=== PATIENT | female | born 1965 | race Caucasian/White ===

== ENCOUNTER 2016-09-12 08:20 | Emergency (ER) | payer OTHER ==
[~2016-09-12] VITALS: Ht 152.4 cm; Wt 83.8 kg
[~2016-09-12 08:20] MED LIST: CLONAZEPAM1 MG PO; HYDROMORPHONE HC4 MG PO; IBUPROFEN600 MG PO; IMODIUM MS REL1 EACH PO; KLONOPIN1 MG PO; LEVETIRACETAM500 MG PO; LYRICA50 MG PO; LYRICA75 MG PO; MIRALAX255 GM PO; OMEPRAZOLE40 M1 PO; PANTOPRAZOLE SO40 MG PO; PRILOSEC40 MG PO; SENNA8.6 MG PO; VIMPAT100 MG PO; ZONEGRAN100 MG PO; ZYRTEC10 M3 PO
[2016-09-12 09:09] LABS: EOSINOPHIL (%) 0.3 % (0-5); HEMATOCRIT 42.4 % (36.0-46.0); IMMATURE GRANULOCYTE (%) 0.3 % (0.0-0.7); LYMPHOCYTE COUNT 1.3 K/uL (1.0-2.8); MCH 28.7 PG (29.0-34.0); MCV 84.5 FL (83-99); MEAN PLAT.VOLUME 9.3 uM^3 (9.5-12.4); MONOCYTE (%) 5.7 % (3-12); MONOCYTE COUNT 0.7 K/uL (0-0.8); NEUTROPHIL (%) 82.9 % (45-76); PLATELET COUNT 264 K/uL (156-360); RBC DIS.WIDTH-CV 12.5 % (11.8-14.6); RBC DIS.WIDTH-SD 38.6 % (39-53); RED BLOOD COUNT 5.02 M/uL (3.80-5.20); WHITE BLOOD COUNT 12.1 K/uL (4.1-10.2)
[2016-09-12 09:22] LABS: CHLORIDE 105 mEq/L (99-109); POTASSIUM 4.2 mEq/L (3.7-5.4); SODIUM 140 mEq/L (136-147)
[2016-09-12 09:24] LABS: GLUCOSE 130 mg/dL (70-99)
[2016-09-12 09:25] LABS: ANION GAP 11 MEQ/L (2-14)
[2016-09-12 09:26] LABS: TOTAL BILIRUBIN 0.8 mg/dL (0.0-1.0)
[2016-09-12 09:28] LABS: ALKALINE PHOSPHATASE 73 IU/L (3-129); GFR ESTIMATE (CALCULATED) > 59 mL/min/
[2016-09-12 09:29] LABS: UREA NITROGEN (BUN) 16 mg/dL (9-23)
[2016-09-12 09:30] LABS: TROP-I INTERPRETATION NEGATIVE; TROPONIN-I < 0.01 ng/mL (0.0-0.30)
[2016-09-12] MEDS ORDERED: DILAUDID4 MG PO (11:05)
[2016-09-12] MEDS ORDERED: FLAGYL500 MG PO (11:05)
[2016-09-12] MEDS ORDERED: CIPRO500 MG PO (11:05)
[2016-09-12 11:09] VITALS: BP 104/81
== END 2016-09-12 13:45 | disposition home or self-care (01) ==
LOC: EME 08:20
PROVIDERS: Emergency Medicine
DX: K52.9 Noninfective gastroenteritis and colitis, unspecified (principal); D72.829 Elevated white blood cell count, unspecified; K21.9 Gastro-esophageal reflux disease without esophagitis; R56.9 Unspecified convulsions
CPT/HCPCS: 74177; 80053; 81003; 84484; 85025; 86850; 86900; 86901; 93005; 99281; 99284

== ENCOUNTER → 2016-11-15 | Outpatient (CLI) | payer OTHER ==
[~2016-11-15] VITALS: Ht 152.4 cm; Wt 81.6 kg
[~2016-11-15] MED LIST changes: +CIPRO500 MG PO; +DILAUDID4 MG PO; +FLAGYL500 MG PO
== END | disposition home or self-care (01) ==
LOC: AMB 08:56
PROC: 0DBL8ZX Excision of Transverse Colon, Via Natural or Artificial Opening Endoscopic, Diagnostic (ICD-10-PCS; principal; 2016-11-15)
DX: K63.5 Polyp of colon (principal); K63.89 Other specified diseases of intestine; K64.8 Other hemorrhoids; R10.32 Left lower quadrant pain; K21.9 Gastro-esophageal reflux disease without esophagitis; K52.9 Noninfective gastroenteritis and colitis, unspecified; E66.9 Obesity, unspecified; Z68.35 Body mass index [BMI] 35.0-35.9, adult; Z80.3 Family history of malignant neoplasm of breast; Z83.3 Family history of diabetes mellitus; Z82.49 Family history of ischemic heart disease and other diseases of the circulatory system
CPT/HCPCS: 88305; J2250; J3010

== ENCOUNTER 2016-12-09 12:54 | Day surgery (SDC) | payer OTHER ==
[~2016-12-09] VITALS: Ht 152.4 cm; Wt 84.0 kg
[2016-12-09] MEDS ORDERED: SUDAFED PE PRE1 EAC2 PR (13:10)
== END 2016-12-09 14:30 | disposition home or self-care (01) ==
LOC: PAIN 12:54
PROC: 015B3ZZ Destruction of Lumbar Nerve, Percutaneous Approach (ICD-10-PCS; principal; 2016-12-09)
DX: M47.26 Other spondylosis with radiculopathy, lumbar region (principal); M12.88 Other specific arthropathies, not elsewhere classified, other specified site; M99.83 Other biomechanical lesions of lumbar region; G40.209 Localization-related (focal) (partial) symptomatic epilepsy and epileptic syndromes with complex partial seizures, not intractable, without status epilepticus; R74.8 Abnormal levels of other serum enzymes; K21.9 Gastro-esophageal reflux disease without esophagitis; E78.2 Mixed hyperlipidemia; E66.9 Obesity, unspecified; Z68.36 Body mass index [BMI] 36.0-36.9, adult; R20.2 Paresthesia of skin; Z88.8 Allergy status to other drugs, medicaments and biological substances
CPT/HCPCS: J1030; J2250; J3010; S0020

== ENCOUNTER 2016-12-16 12:57 | Day surgery (SDC) | payer OTHER ==
[~2016-12-16] VITALS: Ht 152.4 cm; Wt 84.0 kg
[~2016-12-16 12:57] MED LIST changes: +SUDAFED PE PRE1 EAC2 PR
== END 2016-12-16 14:50 | disposition home or self-care (01) ==
LOC: PAIN 12:57 → SDC 13:30 → PAIN 13:30
DX: M47.26 Other spondylosis with radiculopathy, lumbar region (principal); M54.5 Low back pain; K21.9 Gastro-esophageal reflux disease without esophagitis; E78.1 Pure hyperglyceridemia; Z68.36 Body mass index [BMI] 36.0-36.9, adult; E66.9 Obesity, unspecified; G40.909 Epilepsy, unspecified, not intractable, without status epilepticus; F41.9 Anxiety disorder, unspecified; Z88.2 Allergy status to sulfonamides
CPT/HCPCS: J1030; J2250; J3010; S0020

== ENCOUNTER → 2017-10-24 | Outpatient (CLI) | payer OTHER ==
[~2017-10-24] VITALS: Ht 152.4 cm; Wt 88.5 kg
[~2017-10-24] MED LIST changes: +FENOFIBRATE160 M1 PO
== END | disposition home or self-care (01) ==
LOC: AMB 10-21 10:30 → OPR 10-21 12:00 → AMB 10:18
PROC: 0DB68ZX Excision of Stomach, Via Natural or Artificial Opening Endoscopic, Diagnostic (ICD-10-PCS; principal; 2017-10-24)
DX: K29.70 Gastritis, unspecified, without bleeding (principal); K22.10 Ulcer of esophagus without bleeding; K21.9 Gastro-esophageal reflux disease without esophagitis; E78.2 Mixed hyperlipidemia; R73.03 Prediabetes; E66.9 Obesity, unspecified; Z90.49 Acquired absence of other specified parts of digestive tract; Z90.710 Acquired absence of both cervix and uterus; Z90.79 Acquired absence of other genital organ(s); Z90.722 Acquired absence of ovaries, bilateral; Z80.3 Family history of malignant neoplasm of breast; Z83.79 Family history of other diseases of the digestive system; Z83.3 Family history of diabetes mellitus; Z82.49 Family history of ischemic heart disease and other diseases of the circulatory system; Z88.5 Allergy status to narcotic agent
CPT/HCPCS: 88305; 88342 TC; 93005; J0330; J1100; J2405; J3010; J7643